=== PATIENT | male | born 1995 | race Asian ===

== ENCOUNTER 2020-07-11 15:26 | Emergency (ER) | payer BC ==
[~2020-07-11] VITALS: Ht 175.3 cm; Wt 68.0 kg
[2020-07-11 15:31] VITALS: BP 128/66
--- NOTE | 2020-07-11 15:35 | NUR ---
PATIENT AMBULATED TO ER BED 03
--- NOTE | 2020-07-11 15:36 | NUR ---
25 Y/O M C/C LOSS OF TASTE AND SMELL (CN I AND VII) X 2 DAYS. PT REFERRED BY DR NIETO TO GET A RAPID COVID TEST. PT [employer] WORK[employer] EXPOSED TO POSITIVE COVID PATIENTS. PT PRESENTS EUPNIC,VSS,AMBULATORY,A/OX4. PER PT ONLY WANTS RAPID COVID TEST. NKA. NO HX. NO RX. NO NVD.
--- NOTE | 2020-07-11 16:10 | NUR ---
JASMINE BILLINGSLEY SWAB DONE TAKEN TO LAB
[2020-07-11 16:13] VITALS: BP 122/62
--- NOTE | 2020-07-11 16:14 | NUR ---
Patient discharged with v/s stable. Written and verbal after care instructions given and explained. Patient verbalized understanding. Ambulatory with steady gait. All questions addressed prior to discharge. Advised to follow up with PMD.
--- NOTE | 2020-07-11 17:05 | NUR ---
Covid results received from lab. Results = POSITIVE. Hard copy requested from lab and placed in infection controls mailbox.
--- NOTE | 2020-07-11 17:10 | NUR ---
Pt called and notified about results and was informed he is positive with COVID.
== END 2020-07-11 16:14 | disposition home or self-care (01) ==
LOC: MED 15:26
DX: U07.1 COVID-19 (principal); R43.8 Other disturbances of smell and taste
CPT/HCPCS: 99283